=== PATIENT | female | born 1985 | race Caucasian/White ===

== ENCOUNTER 2017-07-26 00:38 | Emergency (ER) | payer MEDICAID ==
[~2017-07-26] VITALS: Ht 154.9 cm; Wt 63.5 kg
[2017-07-26 01:01] VITALS: BP 158/108
--- NOTE | 2017-07-26 01:05 | ER.PDOC ---
General Chief Complaint: Toothache Stated Complaint: TOOTHACHE Time seen by MD: 01:02 Source: patient Exam Limitations: no limitations History of Present Illness Initial Comments Toothache for days Timing/Duration: gradual Associated Symptoms: toothache Severity: moderate Past Medical History Medical History: no pertinent history Surgical History: LMP (females 10-50): last week Social History Smoking: greater than 1 pack/day Alcohol Use: none Drug Use: marijuana Constitutional: no symptoms reported Mouth: see HPI Throat: no symptoms reported Respiratory: no symptoms reported Cardiovascular: no symptoms reported Gastrointestinal: no symptoms reported Musculoskeletal: no symptoms reported All Other Systems: Reviewed and Negative Physical Exam General Appearance: alert, no distress Head/Neck: head nml inspection, neck nml inspection, trachea midline, no lymphadenopathy, thyroid nml Eyes: eyes nml inspection, PERRL, no nystagmus Mouth: dental tenderness (right lower molar) Ears/Nose: nml inspection Respiratory: no resp. distress, lungs clear CVS: reg. rate & rhythm, heart sounds nml Abdomen: non-tender, no organomegaly Extremities: non-tender, ROM nml Skin Exam: Normal Color, Warm/Dry NEURO/PSYCH: oriented X3, mood/effect nml Departure Time of Disposition: 01:03 Disposition: 01 HOME, SELF-CARE Impression: Primary Impression: Pain, dental Condition: Stable Referrals: PCP,UNKNOWN (PCP) PRIMARY CARE PROVIDER Additional Instructions: Clindamycin Ibuprofen F/U with a Dentist ANDREA Duration or Time Spent with Pa: 30 mins COMFORT TOMPKINS MD July 26, 2017 01:05
[2017-07-26] MEDS ORDERED: TORADOL ONE (01:12)
[2017-07-26] MEDS ORDERED: TORADOL IM STA (01:12)
[2017-07-26 01:39] VITALS: BP 162/89
== END 2017-07-26 01:33 | disposition home or self-care (01) ==
LOC: ER 00:38
DX: K08.89 Other specified disorders of teeth and supporting structures (principal); F17.210 Nicotine dependence, cigarettes, uncomplicated; F12.10 Cannabis abuse, uncomplicated
CPT/HCPCS: 96372; 99283; J1885